=== PATIENT | female | born 1950 | race Caucasian/White ===

== ENCOUNTER 2016-12-31 12:31 | Emergency (ER) | payer MEDICARE, OTHER ==
[~2016-12-31] VITALS: Ht 172.7 cm; Wt 79.5 kg
[2016-12-31] MEDS ORDERED: ONDANSETRON ODT 4 MG ONE (12:47)
[2016-12-31] MEDS ORDERED: ONDANSETRON ODT 4 MG PO ONE (13:00)
[2016-12-31] MEDS ORDERED: SODIUM CHLORIDE FLUSH 10ML SYR IVF ONE (13:00)
[2016-12-31] MEDS ORDERED: SODIUM CHLORIDE 0.9% 1,000ML IVBOLUS ONE (13:00)
[2016-12-31] MEDS ORDERED: PLEASE ENTER ALLERGIES MC SCH ×2 (13:00)
[2016-12-31 13:02] LABS: HEMATOCRIT 48.1 % (34.6-47.8); HEMOGLOBIN 16.2 g/dL (11.7-16.4)
[2016-12-31 13:13] LABS: ASPARTATE AMINO TRANSFERASE 21 U/L (15-37); BLOOD UREA NITROGEN 10 mg/dL (7-18)
[2016-12-31] MEDS ORDERED: LOVA10TA PO (13:35)
[2016-12-31] MEDS ORDERED: LEVO25TA2 PO (13:35)
[2016-12-31 14:25] LABS: IS PT STATUS REG ER OR PRE ER? YES
[2016-12-31] MEDS ORDERED: MECLIZINE CHEWABLE 25 MG TAB ONE (14:48)
[2016-12-31 14:51] VITALS: BP 132/49
[2016-12-31] MEDS ORDERED: MECLIZINE CHEWABLE 25 MG TAB PO ONE (15:00)
== END 2016-12-31 16:18 | disposition home or self-care (01) ==
LOC: ED 15:45
DX: E86.0 Dehydration (principal); E03.9 Hypothyroidism, unspecified; E78.5 Hyperlipidemia, unspecified
CPT/HCPCS: 36415; 71010; 80053; 81003; 83690; 84484; 85025; 93005; 96360; 96361; 99285; J7030; Q0162